=== PATIENT | male | born 1975 | race Caucasian/White ===

== ENCOUNTER → 2017-03-15 | Outpatient (CLI) | payer OTHER ==
--- NOTE | 2017-03-15 15:50 | CT ---
EXAMINATION TYPE: CT lumbar spine wo con DATE OF EXAM: 03/15/2017 COMPARISON: MRI lumbar spine September 07, 2011 HISTORY: Patient complains of chronic low back pain with radiation bilaterally to the extremities. CT DLP: 719.6 mGycm Automated exposure control for dose reduction was used. FINDINGS: 5 lumbar type vertebra are redemonstrated. Transitional-type S1 vertebra is redemonstrated. Lumbar sp ine shows satisfactory alignment without evidence of acute fracture or dislocation. Vertebral body he ights and disc space heights are fairly well maintained with exception mild disc space narrowing L5-S 1 level. No large posterior disc herniations are seen on sagittal images. No significant spurring is seen. Review of axial images shows T12-L1, L1-L2, L2-L3, L3-L4, and L4-L5 levels all to appear within marlen l limits levels. Axial images at L5-S1 level show mild facet degenerative changes bilaterally with small central disc protrusion but spinal canal is grossly preserved and bilateral neural foramina are patent. There is partial visualization of normal-appearing appendix in the right upper pelvis. IMPRESSION: MILD DEGENERATIVE CHANGES L5-S1 LEVEL REDEMONSTRATED DETAILED ABOVE, NO SIGNIFICANT PROGRESSION FR OM PRIOR MRI.
== END | disposition home or self-care (01) ==
LOC: RADCTMAIN 15:22
PROVIDERS: ATTEND Family Medicine
DX: M47.816 Spondylosis without myelopathy or radiculopathy, lumbar region (principal)
CPT/HCPCS: 72131

== ENCOUNTER 2017-04-23 09:27 | Observation (INO) | payer OTHER ==
--- NOTE | 2017-04-23 09:43 | ED ---
General Adult HPI - General Chief complaint: Syncope Stated complaint: Syncope/Chest Pain Time Seen by Provider: 04/23/17 09:33 Source: patient, EMS, RN notes reviewed, old records reviewed Mode of arrival: EMS Limitations: no limitations - History of Present Illness Initial comments: This is a 42-year-old out of the ER for evaluation of the. Patient just ER evaluation of shortness of breath with syncopal event. Patient states his With elevated heart rate for about a month or so now. He denies chest pain but stated he had a syncopal event while he was at home today. Based on the timing that he was able to see thinks she was passed out for about a half hour. Currently no chest areas have shortness of breath. This which occasional drug use and no drugs or alcohol today. No other complaints. No headache no chest pain is abdominal pain - Related Data Home Medications Medication Instructions Recorded Confirmed Gabapentin 800 mg PO TID 04/23/17 04/23/17 HYDROcodone/APAP 7.5-325MG [[place] 1 tab PO TID PRN 04/23/17 04/23/17 7.5-325] QUEtiapine FUMARATE [Seroquel Xr] 300 mg PO HS 04/23/17 04/23/17 QUEtiapine XR [SEROquel XR] 200 mg PO HS 04/23/17 04/23/17 Previous Rx's Medication Instructions Recorded Mirtazapine 30 mg PO HS #30 tablet 01/24/16 Perphenazine [Trilafon] 4 mg PO DAILY #30 tab 01/24/16 Perphenazine [Trilafon] 8 mg PO HS #60 tab 01/24/16 Trihexyphenidyl [Artane] 2 mg PO DAILY #30 tab 01/24/16 Trihexyphenidyl [Artane] 4 mg PO HS #60 tab 01/24/16 Allergies Allergy/AdvReac Type Severity Reaction Status Date / Time pregabalin [From Lyrica] Allergy Swelling Verified 04/23/17 09:41 Review of Systems ROS Statement: Those systems with pertinent positive or pertinent negative responses have been documented in the HPI. ROS Other: All systems not noted in ROS Statement are negative. Past Medical History Past Medical History: Fibromyalgia Additional Past Medical History / Comment(s): Chronic back pain History of Any Multi-Drug Resistant Organisms: None Reported Past Surgical History: Joint Replacement Additional Past Surgical History / Comment(s): ORIF left hip Past Psychological History: Depression, Schizoaffective Disorder Smoking Status: Current every day smoker Past Alcohol Use History: Rare Past Drug Use History: Cocaine - Past Family History Father Additional Family Medical History / Comment(s): Father is alive in his late 60s with no major medical problems. Mother Additional Family Medical History / Comment(s): Mother is alive in her early 60s with history of peripheral artery disease Brother(s) Additional Family Medical History / Comment(s): Patient has 1 brother with no major medical problems. Patient does not have any sisters. General Exam Limitations: no limitations General appearance: alert, in no apparent distress Head exam: Present: atraumatic, normocephalic, normal inspection Eye exam: Present: normal appearance, PERRL, EOMI. Absent: scleral icterus, conjunctival injection, periorbital swelling ENT exam: Present: normal exam, mucous membranes moist Neck exam: Present: normal inspection. Absent: tenderness, meningismus, lymphadenopathy Respiratory exam: Present: normal lung sounds bilaterally. Absent: respiratory distress, wheezes, rales, rhonchi, stridor Cardiovascular Exam: Present: normal rhythm, tachycardia, normal heart sounds. Absent: systolic murmur, diastolic murmur, rubs, gallop, clicks GI/Abdominal exam: Present: soft, normal bowel sounds. Absent: distended, tenderness, guarding, rebound, rigid Extremities exam: Present: normal inspection, full ROM, normal capillary refill. Absent: tenderness, pedal edema, joint swelling, calf tenderness Back exam: Present: normal inspection Neurological exam: Present: alert, oriented X3, CN II-XII intact Psychiatric exam: Present: normal affect, normal mood Skin exam: Present: warm, dry, intact, normal color. Absent: rash Course Vital Signs 04/23/17 04/23/17 09:32 10:18 Temperature 97.4 F L Pulse Rate 91 111 H Respiratory 18 18 Rate Blood Pressure 130/75 113/66 O2 Sat by Pulse 97 96 Oximetry - Reevaluation(s) Reevaluation #1: 04/23/17 10:46 Patient is without syncopal event but still feels out of it EKG Findings - EKG Comments: EKG Findings:: EKG shows normal sinus November 98, MD 1:30, QRS 94, QTC 434 Medical Decision Making - Medical Decision Making Foraging out here for evaluation of syncope, elevated heart rate and tachycardia. Weakness. No other neurological or abnormal deficits. Patient will be admitted for observation a syncopal event - Lab Data Result diagrams: 04/23/17 09:50 04/23/17 09:50 Lab Results 04/23/17 04/23/17 04/23/17 Range/Units 09:50 09:50 09:50 WBC 5.6 (3.8-10.6) k/uL RBC 4.70 (4.30-5.90) m/uL Hgb 14.4 (13.0-17.5) gm/dL Hct 43.7 (39.0-53.0) % MCV 92.8 (80.0-100.0) fL MCH 30.6 (25.0-35.0) pg MCHC 32.9 (31.0-37.0) g/dL RDW 14.8 (11.5-15.5) % Plt Count 151 (150-450) k/uL Neutrophils % 63 % Lymphocytes % 22 % Monocytes % 6 % Eosinophils % 7 % Basophils % 1 % Neutrophils # 3.5 (1.3-7.7) k/uL Lymphocytes # 1.2 (1.0-4.8) k/uL Monocytes # 0.3 (0-1.0) k/uL Eosinophils # 0.4 (0-0.7) k/uL Basophils # 0.0 (0-0.2) k/uL PT (9.0-12.0) sec INR (<1.2) APTT (22.0-30.0) sec D-Dimer (<0.60) mg/L FEU Sodium 142 (137-145) mmol/L Potassium 4.1 (3.5-5.1) mmol/L Chloride 112 H (98-107) mmol/L Carbon Dioxide 21 L (22-30) mmol/L Anion Gap 9 mmol/L BUN 6 L (9-20) mg/dL Creatinine 0.81 (0.66-1.25) mg/dL Est GFR (MDRD) Af Amer >60 (>60 ml/min/1.73 sqM) Est GFR (MDRD) Non-Af >60 (>60 ml/min/1.73 sqM) Glucose 91 (74-99) mg/dL Calcium 8.4 (8.4-10.2) mg/dL Magnesium 1.7 (1.6-2.3) mg/dL Total Bilirubin 0.3 (0.2-1.3) mg/dL AST 23 (17-59) U/L ALT 25 (21-72) U/L Alkaline Phosphatase 39 (38-126) U/L Total Creatine Kinase 152 (55-170) U/L Total Protein 6.1 L (6.3-8.2) g/dL Albumin 3.5 (3.5-5.0) g/dL Lipase 39 (23-300) U/L Salicylates mg/dL Urine Opiates Screen (NotDetected) Ur Oxycodone Screen (NotDetected) Urine Methadone Screen (NotDetected) Ur Propoxyphene Screen (NotDetected) Acetaminophen ug/mL Ur Barbiturates Screen (NotDetected) U Tricyclic Antidepress (NotDetected) Ur Phencyclidine Scrn (NotDetected) Ur Amphetamines Screen (NotDetected) U Methamphetamines Scrn (NotDetected) U Benzodiazepines Scrn (NotDetected) Urine Cocaine Screen (NotDetected) U Marijuana (THC) Screen (NotDetected) 04/23/17 04/23/17 04/23/17 Range/Units 09:50 09:50 10:00 WBC (3.8-10.6) k/uL RBC (4.30-5.90) m/uL Hgb (13.0-17.5) gm/dL Hct (39.0-53.0) % MCV (80.0-100.0) fL MCH (25.0-35.0) pg MCHC (31.0-37.0) g/dL RDW (11.5-15.5) % Plt Count (150-450) k/uL Neutrophils % % Lymphocytes % % Monocytes % % Eosinophils % % Basophils % % Neutrophils # (1.3-7.7) k/uL Lymphocytes # (1.0-4.8) k/uL Monocytes # (0-1.0) k/uL Eosinophils # (0-0.7) k/uL Basophils # (0-0.2) k/uL PT 10.7 (9.0-12.0) sec INR 1.1 (<1.2) APTT 22.4 (22.0-30.0) sec D-Dimer 0.33 (<0.60) mg/L FEU Sodium (137-145) mmol/L Potassium (3.5-5.1) mmol/L Chloride (98-107) mmol/L Carbon Dioxide (22-30) mmol/L Anion Gap mmol/L BUN (9-20) mg/dL Creatinine (0.66-1.25) mg/dL Est GFR (MDRD) Af Amer (>60 ml/min/1.73 sqM) Est GFR (MDRD) Non-Af (>60 ml/min/1.73 sqM) Glucose (74-99) mg/dL Calcium (8.4-10.2) mg/dL Magnesium (1.6-2.3) mg/dL Total Bilirubin (0.2-1.3) mg/dL AST (17-59) U/L ALT (21-72) U/L Alkaline Phosphatase (38-126) U/L Total Creatine Kinase (55-170) U/L Total Protein (6.3-8.2) g/dL Albumin (3.5-5.0) g/dL Lipase (23-300) U/L Salicylates <1.0 mg/dL Urine Opiates Screen Detected H (NotDetected) Ur Oxycodone Screen Not Detected (NotDetected) Urine Methadone Screen Not Detected (NotDetected) Ur Propoxyphene Screen Not Detected (NotDetected) Acetaminophen <10.0 ug/mL Ur Barbiturates Screen Not Detected (NotDetected) U Tricyclic Antidepress Detected H (NotDetected) Ur Phencyclidine Scrn Not Detected (NotDetected) Ur Amphetamines Screen Not Detected (NotDetected) U Methamphetamines Scrn Not Detected (NotDetected) U Benzodiazepines Scrn Not Detected (NotDetected) Urine Cocaine Screen Detected H (NotDetected) U Marijuana (THC) Screen Not Detected (NotDetected) - Radiology Data Radiology results: report reviewed (Chest x-ray negative for acute disease), image reviewed Disposition Clinical Impression: Vasovagal syncope, Tachycardia Disposition: ADMITTED IP TO THIS HOSP Condition: Undetermined Referrals: Raven Baron MD [STAFF PHYSICIAN] - 1-2 days
[2017-04-23 10:05] LABS: Basophils % (A) 1 %; CH 31.8; CHCM 34.4; Eosinophils # (A) 0.4 k/uL (0-0.7); Eosinophils % (A) 7 %; HCT 43.7 % (39.0-53.0); HDW 2.83; HGB 14.4 gm/dL (13.0-17.5); Luc % (Auto) 2; Lymphocytes # (A) 1.2 k/uL (1.0-4.8); Lymphocytes % (A) 22 %; MCH 30.6 pg (25.0-35.0); MCHC 32.9 g/dL (31.0-37.0); MCV 92.8 fL (80.0-100.0); Mean Platelet Volume 8.2; Monocytes # (A) 0.3 k/uL (0-1.0); Monocytes % (A) 6 %; Neutrophils # (A) 3.5 k/uL (1.3-7.7); Neutrophils % (A) 63 %; RDW 14.8 % (11.5-15.5); WBC 5.6 k/uL (3.8-10.6); WBC (Perox) 5.34
[2017-04-23 10:14] LABS: Acetaminophen <10.0 ug/mL; Salicylate <1.0 mg/dL
[2017-04-23 10:15] LABS: ALT 25 U/L (21-72); AST 23 U/L (17-59); Alkaline Phosphatase 39 U/L (38-126); Anion Gap 9 mmol/L; Blood Urea Nitrogen 6 mg/dL (9-20); Calcium 8.4 mg/dL (8.4-10.2); Carbon Dioxide 21 mmol/L (22-30); Chloride 112 mmol/L (98-107); Glucose 91 mg/dL (74-99); Magnesium 1.7 mg/dL (1.6-2.3); Non-African American GFR(MDRD) >60 (>60 ml/min/1.73 sqM); Sodium 142 mmol/L (137-145); Total Bilirubin 0.3 mg/dL (0.2-1.3); Total Protein 6.1 g/dL (6.3-8.2)
--- NOTE | 2017-04-23 10:17 | XR ---
EXAMINATION TYPE: XR chest 2V DATE OF EXAM: 04/23/2017 COMPARISON: NONE HISTORY: Chest pain and syncope TECHNIQUE: Frontal and lateral views of the chest are obtained. FINDINGS: There is no focal air space opacity, pleural effusion, or pneumothorax seen. The cardiac silhouette size is within normal limits, appearance of heart size may be accentuated by technique. Th ere are overlying cardiac leads. Patient is rotated. The osseous structures are intact. IMPRESSION: No acute cardiopulmonary process.
[2017-04-23 10:19] LABS: INR 1.1 (<1.2); Partial Thromboplastin Time 22.4 sec (22.0-30.0); Prothrombin Time 10.7 sec (9.0-12.0)
[2017-04-23 10:32] LABS: Potassium 4.1 mmol/L (3.5-5.1)
[2017-04-23 10:33] LABS: Creatine Kinase 152 U/L (55-170)
[2017-04-23] MEDS ORDERED: NITROGLYCERIN SL TABS 0.4 MG TAB SUBLINGUAL PRN (10:42)
[2017-04-23] MEDS ORDERED: ASPIRIN 81 MG PO STA (10:42)
[2017-04-23 10:44] LABS: Creatine Kinase MB 1.6 ng/mL (0.0-2.4); Troponin I <0.012 ng/mL (0.000-0.034)
[2017-04-23] MEDS: SODIUM CHLORIDE 0.9% 1,000 ML IV SCH ×2 (11:58→20:31)
--- NOTE | 2017-04-23 12:05 | P.HPIM ---
History of Present Illness H&P Date: 04/23/17 Chief Complaint: Syncope Patient is a 42-year-old male with a past medical history depression, schizoaffective disorder, fibromyalgia, and chronic back pain who presented to the emergency department with complaints of syncope. He states that he was in his kitchen standing up when he began having chest pain. He had just smoked a cigarette and had a cup of coffee. He describes the chest pain as retrosternal with radiation to his left jaw. It was associated with shortness of breath with wheeze. He describes this as a squeezing sensation. He also had associated nausea and lightheadedness. He had an increase in his anxiety and felt as if something was going to happen. He states that this lasted for approximately 30 minutes. The next thing he remembers is waking up on his kitchen floor. He believes was about 25 minutes that he was passed out. He states it would have been associated with a fall from standing. He lives alone. He admits to cocaine use approximately 3 days ago. He follows closely with psychiatry and is on multiple medications. He denies any recent changes in his medications. He has not missed any medications or taking any extra doses of medications. He has no other complaints currently and denies any recent illness. He is not currently working. He states that when he tries to donate plasma on a tell him his heart rate is too high more often than not. He states that he drinks 3 L of water per day. He was brought in by EMS. On presentation to the ER he had a resting tachycardia at 111. EKG was unremarkable. Laboratory analysis was essentially normal. EKG showed normal sinus rhythm. Review of Systems General: no fever/chills, no rigors, no weight loss/weight gain, no change in appetite Eyes: No double vision, no unusual blurry vision, no loss of vision ENT: No rhinorrhea, congestion, no trush Cardiovascular: Positive chest pain, positive palpitations, positive syncope, no edema, no paroxysmal nocturnal dyspnea, + dizziness Pulmonary: + Shortness of breath, + wheezing, no cough, hemoptysis Abdominal: No abdominal pain, no constipation, no diarrhea, no vomiting, no nausea, no distention Genitourinary: No dysuria, no urinary frequency, no hematuria, no unusual discharge/odor Neuro: No unusual paresthesias, no unusual paresis/paralysis, no headache Dermatologic: No unusual rashes, no unusual lesions, no unusual changes in nails Endocrinology: No intolerance to heat/cold, no excessive thirst,] no unusual fatigue Hematologic: No unusual bruising or bleeding, no unusual cervical lymphadenopathy Psychiatric: No changes in mood or behaviors, no changes in sleep pattern Past Medical History Past Medical History: Fibromyalgia Additional Past Medical History / Comment(s): Chronic back pain, lumbar DDD, L hip nerve pain, hx of ETOH abuse but after 15 yrs in detention, he drinks rarely. History of Any Multi-Drug Resistant Organisms: None Reported Past Surgical History: Orthopedic Surgery Additional Past Surgical History / Comment(s): ORIF left hip Past Psychological History: Depression, Schizoaffective Disorder Smoking Status: Current every day smoker Past Alcohol Use History: Rare Past Drug Use History: Cocaine - Past Family History Father Additional Family Medical History / Comment(s): Father is alive in his late 60s. He is an alcoholic. Mother Family Medical History: Fibromyalgia Additional Family Medical History / Comment(s): Mother is alive in her 60s with history of peripheral artery disease Brother(s) Additional Family Medical History / Comment(s): Patient has 1 brother with no major medical problems. Patient does not have any sisters. Medications and Allergies Home Medications Medication Instructions Recorded Confirmed Type Gabapentin 800 mg PO TID 04/23/17 04/23/17 History HYDROcodone/APAP 7.5-325MG [[place] 1 tab PO TID PRN 04/23/17 04/23/17 History 7.5-325] QUEtiapine FUMARATE [Seroquel Xr] 300 mg PO HS 04/23/17 04/23/17 History QUEtiapine XR [SEROquel XR] 200 mg PO HS 04/23/17 04/23/17 History Allergies Allergy/AdvReac Type Severity Reaction Status Date / Time pregabalin [From Lyrica] Allergy Swelling Verified 04/23/17 09:41 Physical Exam Osteopathic Statement: *. No significant issues noted on an osteopathic structural exam other than those noted in the History and Physical/Consult. Vitals: Vital Signs Temp Pulse Resp BP Pulse Ox 04/23/17 10:18 111 H 18 113/66 96 04/23/17 09:32 97.4 F L 91 18 130/75 97 Intake and Output 04/22/17 04/23/17 04/23/17 22:59 06:59 14:59 Other: Weight 83.915 kg Patient Weight 04/24/17 06:59 Weight 83.915 kg General: non toxic, no distress, appears at stated age, normal weight, disheveled Derm: no rashes, no lesions, no ulcers, no unusual ecchymoses Head: atraumatic, normocephalic, symmetric Eyes: EOMI, no lid lag, anicteric sclera, pupils equal round reactive to light ENT: no post nasal drip, no thrush , nearest patent, no pharyngeal erythema Neck: No thyromegaly, no cervical lymphadenopathy, trachea midline, supple Mouth: no lip lesion, mucus membranes moist Cardiovascular: S1S2 reg, no murmur, positive posterior tibial pulse bilateral, no edema , no JVD, no clubbing, no cyanosis, capillary refill less than 2 seconds, chest pain nonreproducible Lungs: CTA bilateral, no rhonchi, no rales , no accessory muscle use Abdominal: soft, nontender to palpation, no guarding, no appreciable organomegaly, normal bowel sounds Ext: no gross muscle atrophy, muscle strength 5 out of 5 in all 4 extremities grossly, no contractures, Neuro: CN II-XI grossly intact, light touch intact all 4 extremities, finger to nose within normal limits, Psych: Alert, oriented, anxious with pressured speech Results CBC & Chem 7: 04/23/17 09:50 04/23/17 09:50 Labs: Abnormal Lab Results - Last 24 Hours (Table) 04/23/17 04/23/17 Range/Units 09:50 10:00 Chloride 112 H (98-107) mmol/L Carbon Dioxide 21 L (22-30) mmol/L BUN 6 L (9-20) mg/dL Total Protein 6.1 L (6.3-8.2) g/dL Urine Opiates Screen Detected H (NotDetected) U Tricyclic Antidepress Detected H (NotDetected) Urine Cocaine Screen Detected H (NotDetected) Comments: EKG reviewed by me reveals normal sinus rhythm at a rate of 98, normal intervals , normal axis, and nonspecific ST-T wave changes Chest x-ray: report reviewed, image reviewed Thrombosis Risk Factor Assmnt - DVT/VTE Prophylaxis DVT/VTE Prophylaxis: Low risk, early ambulation encouraged - Choose All That Apply Any of the Below Risk Factors Present?: Yes Each Factor Represents 1 point: Age 41-60 years, Obesity (BMI >25) Other Risk Factors: No Other congenital or acquired thrombophilia - If yes, enter type in comment: No Thrombosis Risk Factor Assessment Total Risk Factor Score: 2 Thrombosis Risk Factor Assessment Level: Low Risk Assessment and Plan (1) Syncope Narrative/Plan: Monitor on telemetry, avoid caffeine and nicotine, check echocardiogram in a.m. , if abnormalities on echo or telemetry will consult cardiology. Suspect vasovagal syncope. Status: Acute (2) Chest pain Narrative/Plan: Rather atypical in nature with 30 minute duration of pain associated with anxiety, trend troponins 2 and repeat EKG in a.m., if any abnormalities or chest pain recurred then would consider inpatient versus outpatient cardiac stress test, as needed nitro, aspirin, check lipid profile, check A1c Status: Acute (3) Tobacco abuse Narrative/Plan: Cessation encouraged, will not provide nicotine replacement at this point in time secondary to tachycardia listed above. Status: Acute (4) Cocaine abuse Narrative/Plan: Cessation recommended, this likely could be the cause of his tachycardia. Status: Acute (5) Schizo affective schizophrenia Narrative/Plan: Continue home medications and follow up with psychiatry as an outpatient. Status: Acute (6) Tachycardia Narrative/Plan: Undetermined etiology, electrolytes within normal limits, check echocardiogram, check TSH, magnesium level is normal, may be related to cocaine use. Status: Acute Plan: DVT prophylaxis: Early ambulation Discused with: Emergency department physician Anticipated discharge: Likely home in a.m. pending echo and telemetry results Anticipated discharge place: Home A total of 45 minutes was spent on the care of this complex patient more than 50 % of the time was spent in counseling and care coordination. Time with Patient: Greater than 30
[2017-04-23 17:06] LABS: Creatine Kinase 108 U/L (55-170)
[2017-04-23 17:19] LABS: Creatine Kinase MB 1.3 ng/mL (0.0-2.4); Troponin I <0.012 ng/mL (0.000-0.034)
[2017-04-23] MEDS: GABAPENTIN 400 MG CAP PO SCH (20:33)
[2017-04-23] MEDS: HYDROcodone/APAP 7.5-325MG 1 EACH TAB PO PRN (20:38)
[2017-04-23] MEDS ORDERED: MIRTAZAPINE 15 MG TAB PO SCH (21:00)
[2017-04-23] MEDS ORDERED: PERPHENAZINE 4 MG TAB PO SCH (21:00)
[2017-04-23] MEDS ORDERED: TRIHEXYPHENIDYL 2 MG TAB PO SCH (21:00)
[2017-04-23 22:38] LABS: Creatine Kinase 96 U/L (55-170)
[2017-04-23 22:51] LABS: Creatine Kinase MB 1.5 ng/mL (0.0-2.4); Troponin I <0.012 ng/mL (0.000-0.034)
[2017-04-24 03:42] VITALS: RESP 18
[2017-04-24] MEDS: NICOTINE 14MG/24HR PATCH TRANSDERM SCH ×2 (04:37→06:39)
[2017-04-24] MEDS: SODIUM CHLORIDE 0.9% 1,000 ML IV SCH (06:41)
[2017-04-24 07:38] VITALS: TEMP 97.3
[2017-04-24] MEDS: GABAPENTIN 400 MG CAP PO SCH (08:25)
[2017-04-24] MEDS: HYDROcodone/APAP 7.5-325MG 1 EACH TAB PO PRN (08:28)
[2017-04-24] MEDS ORDERED: ASPIRIN 325 MG TAB PO SCH (09:00)
[2017-04-24] MEDS ORDERED: PERPHENAZINE 4 MG TAB PO SCH (09:00)
[2017-04-24] MEDS ORDERED: TRIHEXYPHENIDYL 2 MG TAB PO SCH (09:00)
[2017-04-24] MEDS ORDERED: ENOXAPARIN 40 MG/0.4 ML SYRINGE SQ SCH (09:00)
[2017-04-24 11:38] VITALS: BP 123/78; PULSE 80
--- NOTE | 2017-04-24 11:45 | ECHOF ---
Referral Reason:syncope MEASUREMENTS -------- HEIGHT: 177.8 cm WEIGHT: 83.9 kg BP: 118/73 RVIDd: 2.9 cm (< 3.3) IVSd: 1.1 cm (0.6 - 1.1) LVIDd: 4.7 cm (3.9 - 5.3) LVPWd: 1.0 cm (0.6 - 1.1) IVSs: 1.4 cm LVIDs: 3.0 cm LVPWs: 1.3 cm LA Diam: 3.5 cm (2.7 - 3.8) LAESV Index (A-L): 23.40 ml/m Ao Diam: 2.9 cm (2.0 - 3.7) AV Cusp: 2.1 cm (1.5 - 2.6) MV EXCURSION: 23.970 mm (> 18.000) MV EF SLOPE: 212 mm/s (70 - 150) EPSS: 0.6 cm MV E Mak: 0.79 m/s MV DecT: 140 ms MV A Mak: 0.53 m/s MV E/A Ratio: 1.48 RAP: 5.00 mmHg RVSP: 23.43 mmHg FINDINGS -------- Sinus rhythm. This was a technically good study. The left ventricular size is normal. There is borderline concentric left ventricular hypertrophy. Overall left ventricular systolic function is normal with, an EF between 55 - 60 %. The right ventricle is normal in size. Normal LA size by volume 22+/-6 ml/m2. The right atrium is normal in size. The aortic valve is trileaflet and appears structurally normal. There is trace to mild mitral regurgitation. Trace tricuspid regurgitation present. The pulmonic valve was not well visualized. The aortic root size is normal. l inferior vena cava with normal inspiratory collapse consistent with estimated right atrial pressure of 5 mmHg. The inferior vena cava is mildly dilated. There is no pericardial effusion. CONCLUSIONS -------- 1. Sinus rhythm. 2. There is trace to mild mitral regurgitation. 3. Trace tricuspid regurgitation present. 4. The pulmonic valve was not well visualized. 5. The aortic root size is normal. 6. l inferior vena cava with normal inspiratory collapse consistent with estimated right atrial pressure of 5 mmHg. 7. The inferior vena cava is mildly dilated. 8. There is no pericardial effusion. 9. This was a technically good study. 10. The left ventricular size is normal. 11. There is borderline concentric left ventricular hypertrophy. 12. Overall left ventricular systolic function is normal with, an EF between 55 - 60 %. 13. The right ventricle is normal in size. 14. Normal LA size by volume 22+/-6 ml/m2. 15. The right atrium is normal in size. 16. The aortic valve is trileaflet and appears structurally normal. BEHAVIORIST: Emilie Mayes RDCS
--- NOTE | 2017-04-24 13:40 | P.DS ---
Providers Date of admission: 04/23/17 10:42 Expected date of discharge: 04/24/17 Attending physician: Aylin Major DO Consults: None Primary care physician: Stated None - Discharge Diagnosis(es) (1) Syncope Current Visit: Yes Status: Acute (2) Chest pain Current Visit: Yes Status: Acute (3) Tobacco abuse Current Visit: Yes Status: Acute (4) Cocaine abuse Current Visit: Yes Status: Acute (5) Schizo affective schizophrenia Current Visit: Yes Status: Acute (6) Tachycardia Current Visit: Yes Status: Acute Hospital Course: Patient is a 42-year-old male with past medical history of depression , schizoaffective disorder, fibromyalgia, and chronic back pain presented to the emergency department with a syncopal event. He had recently drunk coffee and smoked a cigarette. He states that his symptoms began with some chest discomfort associated with shortness of breath and wheezing. He also had nausea and lightheadedness and felt increasingly anxious. He believes he passed out for 30 minutes. He did not lose control of his bowel or bladder. He did admit to cocaine use. In the ER his EKG showed normal sinus rhythm, his troponins were negative, he was slightly tachycardic at 110 in the vital sign. He was started on IV fluids and request was made for admission. He was admitted to the observation unit. He was monitored overnight on telemetry which showed normal sinus rhythm 70s. He underwent an echocardiogram which showed possible borderline LVH. He did not have any recurrence of chest pain. It was felt that his chest pain was likely dictated by multiple stimulant use including cocaine, nicotine, and tobacco products. With a troponin being negative 2 and resolution of his chest pain currently discharged home to follow up with his primary care physician. Patient Condition at Discharge: Undetermined Plan - Discharge Summary New Discharge Prescriptions: Continue Trihexyphenidyl [Artane] 2 mg PO DAILY #30 tab Trihexyphenidyl [Artane] 4 mg PO HS #60 tab Mirtazapine 30 mg PO HS #30 tablet Perphenazine [Trilafon] 8 mg PO HS #60 tab Perphenazine [Trilafon] 4 mg PO DAILY #30 tab QUEtiapine XR [SEROquel XR] 200 mg PO HS QUEtiapine FUMARATE [Seroquel Xr] 300 mg PO HS HYDROcodone/APAP 7.5-325MG [[place] 7.5-325] 1 tab PO TID PRN PRN Reason: Pain Gabapentin 800 mg PO TID Discharge Medication List Mirtazapine 30 mg PO HS #30 tablet 01/24/16 [Rx] Perphenazine [Trilafon] 4 mg PO DAILY #30 tab 01/24/16 [Rx] Perphenazine [Trilafon] 8 mg PO HS #60 tab 01/24/16 [Rx] Trihexyphenidyl [Artane] 2 mg PO DAILY #30 tab 01/24/16 [Rx] Trihexyphenidyl [Artane] 4 mg PO HS #60 tab 01/24/16 [Rx] Gabapentin 800 mg PO TID 04/23/17 [History] HYDROcodone/APAP 7.5-325MG [[place] 7.5-325] 1 tab PO TID PRN 04/23/17 [History] QUEtiapine FUMARATE [Seroquel Xr] 300 mg PO HS 04/23/17 [History] QUEtiapine XR [SEROquel XR] 200 mg PO HS 04/23/17 [History] Follow up Appointment(s)/Referral(s): [facility]ERR[facility] - 3 Days Patient Instructions/Handouts: How to Stop Smoking (DC) Activity/Diet/Wound Care/Special Instructions: Regular diet Limit caffeine No illicit drug use Stop smoking if able Discharge Disposition: HOME SELF-CARE Pending Studies Pending Results: None
== END 2017-04-24 13:21 | disposition home or self-care (01) ==
LOC: EC 09:27 → 3OBS 10:42
PROVIDERS: ADMIT Internal Medicine; ATTEND Internal Medicine
DX: R55 Syncope and collapse (principal); R07.89 Other chest pain; R06.2 Wheezing; R06.02 Shortness of breath; R42 Dizziness and giddiness; R11.0 Nausea; F41.9 Anxiety disorder, unspecified; F17.210 Nicotine dependence, cigarettes, uncomplicated; F14.10 Cocaine abuse, uncomplicated; F25.9 Schizoaffective disorder, unspecified; R00.0 Tachycardia, unspecified; E66.9 Obesity, unspecified; Z68.28 Body mass index [BMI] 28.0-28.9, adult; G89.29 Other chronic pain; M54.9 Dorsalgia, unspecified; M79.7 Fibromyalgia; M51.36 Other intervertebral disc degeneration, lumbar region; F32.9 Major depressive disorder, single episode, unspecified; Z79.899 Other long term (current) drug therapy; Z88.8 Allergy status to other drugs, medicaments and biological substances; Z82.49 Family history of ischemic heart disease and other diseases of the circulatory system
CPT/HCPCS: 99285; 96360; 96372; 36415; 93005; 93306; 85379; 80061; 80053; 84443; 83036; 82550; 82553; 83690; 83735; 84484; 85025; 85610; 85730; 80306; 83520 ×2; 71020; G0378 ×2; S4990; Q0175 ×2; J1650

== ENCOUNTER 2020-02-03 00:19 | Inpatient (IN) | payer MEDICAID, OTHER ==
[2020-02-03] MEDS ORDERED: SODIUM CHLORIDE 0.9% 1,000 ML IV ONE (00:59)
[2020-02-03 01:22] LABS: Basophils % (A) 0 %; Eosinophils # (A) 0.3 k/uL (0-0.7); Eosinophils % (A) 4 %; HCT 45.1 % (39.0-53.0); HGB 14.7 gm/dL (13.0-17.5); Lymphocytes # (A) 0.8 k/uL (1.0-4.8); Lymphocytes % (A) 11 %; MCH 29.6 pg (25.0-35.0); MCHC 32.5 g/dL (31.0-37.0); Mean Platelet Volume 8.1; Monocytes # (A) 0.5 k/uL (0-1.0); Monocytes % (A) 6 %; Neutrophils # (A) 5.8 k/uL (1.3-7.7); Neutrophils % (A) 77 %; Platelet Count 162 k/uL (150-450); RBC 4.95 m/uL (4.30-5.90); RDW 12.8 % (11.5-15.5); WBC 7.6 k/uL (3.8-10.6)
[2020-02-03 01:30] LABS: ALT 18 U/L (4-49); AST 20 U/L (17-59); African American GFR (CKD) >90 (>60 ml/min/1.73 sqM); Albumin 4.3 g/dL (3.5-5.0); Alkaline Phosphatase 48 U/L (38-126); Anion Gap 7 mmol/L; Blood Urea Nitrogen 8 mg/dL (9-20); Calcium 9.2 mg/dL (8.4-10.2); Carbon Dioxide 24 mmol/L (22-30); Chloride 105 mmol/L (98-107); Glucose 110 mg/dL (74-99); Non-African American GFR(CKD) >90 (>60 ml/min/1.73 sqM); Potassium 3.9 mmol/L (3.5-5.1); Sodium 136 mmol/L (137-145); Total Bilirubin 0.3 mg/dL (0.2-1.3); Total Protein 7.3 g/dL (6.3-8.2)
[2020-02-03] MEDS ORDERED: LORazepam 2 MG/ML INJ IV STA ×2 (01:36→01:39)
[2020-02-03] MEDS ORDERED: ZIPRASIDONE 20 MG VIAL IM STA (01:39)
[2020-02-03 01:56] LABS: Appearance,Urine Clear (Clear); Bilirubin,Urine Negative (Negative); Blood,Urine Negative (Negative); Color,Urine Light Yellow; Glucose,Urine (UA) Negative (Negative); Ketones,Urine Negative (Negative); Leukocyte Esterase,Urine Negative (Negative); Nitrite,Urine Negative (Negative); Protein,Urine Negative (Negative); Specific Gravity,Urine 1.005 (1.001-1.035)
[2020-02-03 02:23] LABS: Phencyclidine Screen,Urine Not Detected (NotDetected)
[2020-02-03 02:24] LABS: Amphetamine Screen,Urine Not Detected (NotDetected); Barbiturate Screen,Urine Not Detected (NotDetected); Benzodiazepines Screen,Urine Not Detected (NotDetected); Cocaine Screen,Urine Detected (NotDetected); Methadone Screen, Urine Not Detected (NotDetected); Opiate Screen,Urine Not Detected (NotDetected); Oxycodone Screen, Urine Not Detected (NotDetected); Tricyclic Antidepressant,Urine Detected (NotDetected); Urn Cannabinoid Scrn Detected (NotDetected)
--- NOTE | 2020-02-03 02:30 | ED ---
Psych HPI - General Chief Complaint: Psychiatric Symptoms Stated Complaint: mental health Time Seen by Provider: 02/03/20 00:35 Source: patient, EMS Mode of arrival: EMS - History of Present Illness Initial Comments: 44-year-old male patient is brought to the emergency department today for evaluation of bizarre behavior. Patient arrived at the [employer] [facility] and shortly thereafter started behaving oddly. Patient was reportedly walking around with a pillowcase and has had talking about being in water. He was confused as to how old he was in his the president was. Review of patient records revealed a he has a history of schizoaffective disorder. Patient states he is taking medication but he does not list what he is taking her why he is taking them. Patient currently denies any physical symptoms or concerns. When speaking to him he does seem confused and out of touch with reality. He denies any suicidal or homicidal ideation. Denies any current medical concerns. - Related Data Home Medications Medication Instructions Recorded Confirmed QUEtiapine FUMARATE [Seroquel Xr] 300 mg PO HS 04/23/17 02/03/20 QUEtiapine XR [SEROquel XR] 200 mg PO HS 04/23/17 02/03/20 Buprenorphine HCl/Naloxone HCl 1 film SUBLINGUAL DAILY 02/03/20 02/03/20 [Suboxone 12 mg-3 mg Sl Film] Buprenorphine HCl/Naloxone HCl 1 film SUBLINGUAL DAILY 02/03/20 02/03/20 [Suboxone 8 mg-2 mg Sl Film] Perphenazine [Trilafon] 8 mg PO BID 02/03/20 02/03/20 Propranolol [Inderal] 40 mg PO DAILY 02/03/20 02/03/20 Trihexyphenidyl HCl 5 mg PO BID 02/03/20 02/03/20 Previous Rx's Medication Instructions Recorded Mirtazapine 30 mg PO HS #30 tablet 01/24/16 Allergies Allergy/AdvReac Type Severity Reaction Status Date / Time pregabalin [From Lyrica] Allergy Swelling Verified 02/03/20 14:49 Review of Systems ROS Statement: Those systems with pertinent positive or pertinent negative responses have been documented in the HPI. ROS Other: All systems not noted in ROS Statement are negative. Past Medical History Past Medical History: Fibromyalgia Additional Past Medical History / Comment(s): Chronic back pain, lumbar DDD, L hip nerve pain, hx of ETOH abuse but after 15 yrs in longterm, he drinks rarely. History of Any Multi-Drug Resistant Organisms: None Reported Past Surgical History: Orthopedic Surgery Additional Past Surgical History / Comment(s): ORIF left hip Past Psychological History: Depression, Schizoaffective Disorder Smoking Status: Current every day smoker Past Alcohol Use History: Rare Past Drug Use History: Cocaine - Past Family History Father Additional Family Medical History / Comment(s): Father is alive in his late 60s. He is an alcoholic. Mother Family Medical History: Fibromyalgia Additional Family Medical History / Comment(s): Mother is alive in her 60s with history of peripheral artery disease Brother(s) Additional Family Medical History / Comment(s): Patient has 1 brother with no major medical problems. Patient does not have any sisters. General Exam Limitations: no limitations General appearance: alert, in no apparent distress, other (This is a well- developed, well-nourished adult male patient in no acute distress. Vital signs upon presentation are temperature 98.5F, pulse 118, respirations 18, blood pr essure 154/91, pulse ox 98% on room air.) Eye exam: Present: normal appearance, PERRL, EOMI. Absent: scleral icterus, conjunctival injection, periorbital swelling ENT exam: Present: normal exam, normal oropharynx, mucous membranes moist Respiratory exam: Present: normal lung sounds bilaterally. Absent: respiratory distress, wheezes, rales, rhonchi, stridor Cardiovascular Exam: Present: regular rate, normal rhythm, normal heart sounds. Absent: systolic murmur, diastolic murmur, rubs, gallop, clicks GI/Abdominal exam: Present: soft, normal bowel sounds. Absent: distended, tenderness, guarding, rebound, rigid Neurological exam: Present: alert, CN II-XII intact. Absent: oriented X3 (Oriented x1) Expanded Cranial nerves: EOM's Intact: Normal Motor strength exam: RUE: 5, LUE: 5, RLE: 5, LLE: 5 Eye Response: (4) open spontaneously Motor Response: (6) obeys commands Verbal Response: (4) confused conversation [place] Total: 14 Psychiatric exam: Present: anxious, manic, other (flight of ideas). Absent: homicidal ideation, suicidal ideation Skin exam: Present: warm, dry, intact, normal color. Absent: rash Course Vital Signs 02/03/20 02/03/20 02/03/20 00:30 04:00 05:19 Temperature 98.5 F Pulse Rate 118 H 74 Respiratory 18 16 12 Rate Blood Pressure 154/91 126/71 O2 Sat by Pulse 98 96 Oximetry Medical Decision Making - Medical Decision Making 44-year-old male patient presents to the emergency department today for bizarre behavior. Physical examination is unremarkable. Patient exhibits flight of id eas and manic behavior during my evaluation. Physical exam is unremarkable. We did perform lab testing which is unremarkable. He was not drinking alcohol this evening. He will be clear for emergency psychiatric services to evaluate. Care will be handed over to my attending Dr. Guerra at 0300. - Lab Data Result diagrams: 02/03/20 01:14 02/03/20 01:14 Lab Results 02/03/20 02/03/20 02/03/20 Range/Units 01:14 01:14 01:14 WBC 7.6 (3.8-10.6) k/uL RBC 4.95 (4.30-5.90) m/uL Hgb 14.7 (13.0-17.5) gm/dL Hct 45.1 (39.0-53.0) % MCV 91.0 (80.0-100.0) fL MCH 29.6 (25.0-35.0) pg MCHC 32.5 (31.0-37.0) g/dL RDW 12.8 (11.5-15.5) % Plt Count 162 (150-450) k/uL Neutrophils % 77 % Lymphocytes % 11 % Monocytes % 6 % Eosinophils % 4 % Basophils % 0 % Neutrophils # 5.8 (1.3-7.7) k/uL Lymphocytes # 0.8 L (1.0-4.8) k/uL Monocytes # 0.5 (0-1.0) k/uL Eosinophils # 0.3 (0-0.7) k/uL Basophils # 0.0 (0-0.2) k/uL Sodium 136 L (137-145) mmol/L Potassium 3.9 (3.5-5.1) mmol/L Chloride 105 (98-107) mmol/L Carbon Dioxide 24 (22-30) mmol/L Anion Gap 7 mmol/L BUN 8 L (9-20) mg/dL Creatinine 0.81 (0.66-1.25) mg/dL Est GFR (CKD-EPI)AfAm >90 (>60 ml/min/1.73 sqM) Est GFR (CKD-EPI)NonAf >90 (>60 ml/min/1.73 sqM) Glucose 110 H (74-99) mg/dL Calcium 9.2 (8.4-10.2) mg/dL Total Bilirubin 0.3 (0.2-1.3) mg/dL AST 20 (17-59) U/L ALT 18 (4-49) U/L Alkaline Phosphatase 48 (38-126) U/L Total Protein 7.3 (6.3-8.2) g/dL Albumin 4.3 (3.5-5.0) g/dL Triglycerides 56 (<150) mg/dL Cholesterol 133 (<200) mg/dL LDL Cholesterol, Calc 87 (0-99) mg/dL HDL Cholesterol 35 L (40-60) mg/dL TSH 3.830 (0.465-4.680) mIU/L Urine Color Urine Appearance (Clear) Urine pH (5.0-8.0) Ur Specific Kress (1.001-1.035) Urine Protein (Negative) Urine Glucose (UA) (Negative) Urine Ketones (Negative) Urine Blood (Negative) Urine Nitrite (Negative) Urine Bilirubin (Negative) Urine Urobilinogen (<2.0) mg/dL Ur Leukocyte Esterase (Negative) Urine Opiates Screen (NotDetected) Ur Oxycodone Screen (NotDetected) Urine Methadone Screen (NotDetected) Ur Propoxyphene Screen (NotDetected) Ur Barbiturates Screen (NotDetected) U Tricyclic Antidepress (NotDetected) Ur Phencyclidine Scrn (NotDetected) Ur Amphetamines Screen (NotDetected) U Methamphetamines Scrn (NotDetected) U Benzodiazepines Scrn (NotDetected) Urine Cocaine Screen (NotDetected) U Marijuana (THC) Screen (NotDetected) 02/03/20 Range/Units 01:45 WBC (3.8-10.6) k/uL RBC (4.30-5.90) m/uL Hgb (13.0-17.5) gm/dL Hct (39.0-53.0) % MCV (80.0-100.0) fL MCH (25.0-35.0) pg MCHC (31.0-37.0) g/dL RDW (11.5-15.5) % Plt Count (150-450) k/uL Neutrophils % % Lymphocytes % % Monocytes % % Eosinophils % % Basophils % % Neutrophils # (1.3-7.7) k/uL Lymphocytes # (1.0-4.8) k/uL Monocytes # (0-1.0) k/uL Eosinophils # (0-0.7) k/uL Basophils # (0-0.2) k/uL Sodium (137-145) mmol/L Potassium (3.5-5.1) mmol/L Chloride (98-107) mmol/L Carbon Dioxide (22-30) mmol/L Anion Gap mmol/L BUN (9-20) mg/dL Creatinine (0.66-1.25) mg/dL Est GFR (CKD-EPI)AfAm (>60 ml/min/1.73 sqM) Est GFR (CKD-EPI)NonAf (>60 ml/min/1.73 sqM) Glucose (74-99) mg/dL Calcium (8.4-10.2) mg/dL Total Bilirubin (0.2-1.3) mg/dL AST (17-59) U/L ALT (4-49) U/L Alkaline Phosphatase (38-126) U/L Total Protein (6.3-8.2) g/dL Albumin (3.5-5.0) g/dL Triglycerides (<150) mg/dL Cholesterol (<200) mg/dL LDL Cholesterol, Calc (0-99) mg/dL HDL Cholesterol (40-60) mg/dL TSH (0.465-4.680) mIU/L Urine Color Light Yellow Urine Appearance Clear (Clear) Urine pH 7.0 (5.0-8.0) Ur Specific Kress 1.005 (1.001-1.035) Urine Protein Negative (Negative) Urine Glucose (UA) Negative (Negative) Urine Ketones Negative (Negative) Urine Blood Negative (Negative) Urine Nitrite Negative (Negative) Urine Bilirubin Negative (Negative) Urine Urobilinogen 2.0 (<2.0) mg/dL Ur Leukocyte Esterase Negative (Negative) Urine Opiates Screen Not Detected (NotDetected) Ur Oxycodone Screen Not Detected (NotDetected) Urine Methadone Screen Not Detected (NotDetected) Ur Propoxyphene Screen Not Detected (NotDetected) Ur Barbiturates Screen Not Detected (NotDetected) U Tricyclic Antidepress Detected H (NotDetected) Ur Phencyclidine Scrn Not Detected (NotDetected) Ur Amphetamines Screen Not Detected (NotDetected) U Methamphetamines Scrn Not Detected (NotDetected) U Benzodiazepines Scrn Not Detected (NotDetected) Urine Cocaine Screen Detected H (NotDetected) U Marijuana (THC) Screen Detected H (NotDetected) Disposition Clinical Impression: Psychosis Disposition: TRANSFER TO PSYCH HOSP/UNIT Condition: Serious - Out of Hospital Transfer - Req. Specs Out of Hospital Transfer - Requested Specifics: Psychiatric Non-ICU ([facility])
[2020-02-03] MEDS ORDERED: MAGNESIUM HYDROXIDE 2,400 MG/10 ML CUP PO PRN (13:04)
[2020-02-03] MEDS ORDERED: MAG HYDROX/AL HYDROX/SIMETH 30 ML CUP PO PRN (13:04)
[2020-02-03] MEDS ORDERED: ACETAMINOPHEN TAB 325 MG TAB PO PRN (13:04)
[2020-02-03] MEDS ORDERED: LORazepam 1 MG TAB PO STA (13:16)
[2020-02-03] MEDS: NICOTINE 14MG/24HR PATCH TRANSDERM SCH (14:06)
[2020-02-03] MEDS: ZIPRASIDONE 20 MG VIAL IM PRN (16:08)
[2020-02-03] MEDS: LORazepam 1 MG TAB PO PRN (16:08)
--- NOTE | 2020-02-03 17:46 | P.HPMEDMHU ---
History of Present Illness H&P Date: 02/03/20 Chief Complaint: Bizarre behavior Patient is a 44-year-old male with a history of chronic back pain, fibromyalgia, degenerative disc disease, cocaine abuse, alcohol abuse who was petitioned by police and subsequently admitted to the mental health unit for bizarre behaviors. Patient has been confused with psychosis since admission. All information is obtained from thorough record review including speaking with the nurse, and review of his admission in the H&P performed on him in April 2017. Patient seen and examined with EPS nurse. He is acutely psychotic and cannot stay focused on my questions. He goes off talking about the , guns, and missing his leg. He currently is denying chest pain, shortness breath, nausea, vomiting, or diarrhea. He is unable to fully participate my exam as he has a flight of ideas. Review of Systems Unable to obtain full review of systems secondary to psychosis Past Medical History Past Medical History: Fibromyalgia Additional Past Medical History / Comment(s): Chronic back pain, lumbar DDD, L hip nerve pain, hx of ETOH History of Any Multi-Drug Resistant Organisms: None Reported Past Surgical History: Orthopedic Surgery Additional Past Surgical History / Comment(s): ORIF left hip Past Psychological History: Depression, Schizoaffective Disorder Additional Psychological History / Comment(s): . He does not drive, he uses the bus. He is independent. Smoking Status: Current every day smoker Past Alcohol Use History: Rare Past Drug Use History: Cocaine, Marijuana Additional Drug Use History / Comment(s): See above. - Past Family History Father Family Medical History: Hyperlipidemia Additional Family Medical History / Comment(s): alcoholic. Mother Family Medical History: Fibromyalgia Additional Family Medical History / Comment(s): peripheral artery disease Brother(s) Additional Family Medical History / Comment(s): Patient has 1 brother with no major medical problems. Patient does not have any sisters. Medications and Allergies Home Medications Medication Instructions Recorded Confirmed Type Mirtazapine 30 mg PO HS #30 tablet 01/24/16 02/03/20 Rx QUEtiapine FUMARATE [Seroquel Xr] 300 mg PO HS 04/23/17 02/03/20 History QUEtiapine XR [SEROquel XR] 200 mg PO HS 04/23/17 02/03/20 History Buprenorphine HCl/Naloxone HCl 1 film SUBLINGUAL DAILY 02/03/20 02/03/20 History [Suboxone 12 mg-3 mg Sl Film] Buprenorphine HCl/Naloxone HCl 1 film SUBLINGUAL DAILY 02/03/20 02/03/20 History [Suboxone 8 mg-2 mg Sl Film] Perphenazine [Trilafon] 8 mg PO BID 02/03/20 02/03/20 History Propranolol [Inderal] 40 mg PO DAILY 02/03/20 02/03/20 History Trihexyphenidyl HCl 5 mg PO BID 02/03/20 02/03/20 History Allergies Allergy/AdvReac Type Severity Reaction Status Date / Time pregabalin [From Lyrica] Allergy Swelling Verified 02/03/20 14:49 Physical Exam Osteopathic Statement: *. No significant issues noted on an osteopathic structural exam other than those noted in the History and Physical/Consult. Vitals: Vital Signs Temp Pulse Pulse Resp BP BP Pulse Ox 02/03/20 14:41 97.5 F L 124 H 16 124/87 02/03/20 05:19 74 12 126/71 96 02/03/20 04:00 16 02/03/20 00:30 98.5 F 118 H 18 154/91 98 Intake and Output 02/03/20 02/03/20 02/03/20 06:59 14:59 22:59 Other: Weight 83.915 kg 83.915 kg General: non toxic, no distress, appears at stated age, normal weight, disheveled Derm: no unusual rashes/lesions no unusual ecchymoses, warm, dry Head: atraumatic, normocephalic, symmetric Eyes: EOMI, no lid lag, anicteric sclera, ENT: Nose and ears atraumatic, no thrush, Neck: No thyromegaly, no cervical lymphadenopathy, trachea midline, supple Mouth: no lip lesion, mucus membranes dry Cardiovascular: S1S2 reg, no murmur, positive posterior tibial pulse bilateral, no edema, capillary refill less than 2 seconds Lungs: CTA bilateral, no rhonchi, no rales , no accessory muscle use Abdominal: soft, nontender to palpation, no guarding, no appreciable orga nomegaly, normal bowel sounds Ext: no gross muscle atrophy, muscle strength 5 out of 5 in all 4 extremities grossly, no contractures, Neuro: CN II-XI grossly intact, light touch intact all 4 extremities, unable to follow commands for [id number] Psych: Awake, alert to self, talking about things that are not present and cannot follow conversation Cranial Nerve Examination - Cranial Nerves Cranial Nerve II- Optic: Intact Cranial Nerve III- Oculomotor: Intact Cranial Nerve IV- Trochlear: Intact Cranial Nerve V- Trigeminal: Intact Cranial Nerve - Abducens: Intact Cranial Nerve VII- Facial: Intact Cranial Nerve VIII- Auditory: Intact Cranial Nerve IX- Glossopharyngeal: Intact Cranial Nerve X- Vagus: Intact Cranial Nerve XI- Accessory: Intact Cranial Nerve XII- Hypoglossal: Intact Results CBC & Chem 7: 02/03/20 01:14 02/03/20 01:14 Labs: Abnormal Lab Results - Last 24 Hours (Table) 02/03/20 02/03/20 02/03/20 Range/Units 01:14 01:14 01:45 Lymphocytes # 0.8 L (1.0-4.8) k/uL Sodium 136 L (137-145) mmol/L BUN 8 L (9-20) mg/dL Glucose 110 H (74-99) mg/dL U Tricyclic Antidepress Detected H (NotDetected) Urine Cocaine Screen Detected H (NotDetected) U Marijuana (THC) Screen Detected H (NotDetected) Thrombosis Risk Factor Assmnt - Choose All That Apply Each Factor Represents 1 point: Age 41-60 years Other Risk Factors: No Other congenital or acquired thrombophilia - If yes, enter type in comment: No Thrombosis Risk Factor Assessment Total Risk Factor Score: 1 Thrombosis Risk Factor Assessment Level: Low Risk Assessment and Plan Assessment: Chronic pain - Patient is prescribed Suboxone. RX sent 01/12 and 01/26 for both 12 and 8 mg films. Patient was not getting these filled per [facility] between 09/22/19 (that dose was 8.6) and 01/13/20. Would hold this medication due to altered mentation. - tylenol as needed for pain HTN - Propranolol Cocaine abuse - cessation Schizoaffective disorder with psychosis - hold suboxone - your psych management Thank you for allowing us to participate in the care of this pleasant patient. Do not hesitate to contact us with questions. Someone can be reached from the [facility] hospitalist group all hours of the day at [phone] or via perfect serve.
[2020-02-03] MEDS: MIRTAZAPINE 15 MG TAB PO SCH (20:26)
[2020-02-03] MEDS: QUEtiapine 100 MG TAB PO SCH (20:26)
[2020-02-03] MEDS: TRIHEXYPHENIDYL 2 MG TAB PO SCH (20:28)
[2020-02-03] MEDS: PERPHENAZINE 4 MG TAB PO SCH (20:45)
[2020-02-03] MEDS ORDERED: QUEtiapine 50 MG TAB PO SCH (21:00)
[2020-02-04 02:22] LABS: Cholesterol 133 mg/dL (<200); HDL Cholesterol 35 mg/dL (40-60); LDL Cholesterol,Calculated 87 mg/dL (0-99); Triglycerides 56 mg/dL (<150)
[2020-02-04] MEDS: NICOTINE 14MG/24HR PATCH TRANSDERM SCH (08:02)
[2020-02-04] MEDS: QUEtiapine 100 MG TAB PO SCH ×2 (08:03→20:15)
[2020-02-04] MEDS: PROPRANOLOL 40 MG TAB PO SCH (08:03)
[2020-02-04] MEDS: TRIHEXYPHENIDYL 2 MG TAB PO SCH ×2 (08:03→20:17)
[2020-02-04] MEDS: PERPHENAZINE 4 MG TAB PO SCH ×2 (08:03→20:18)
--- NOTE | 2020-02-04 11:59 | P.HP ---
Psychiatric H&P - . H&P Date: 02/04/20 History & Physical: Allergies Allergy/AdvReac Type Severity Reaction Status Date / Time pregabalin [From Lyrica] Allergy Swelling Verified 02/03/20 14:49 Vital Signs Temp 98.7 F 02/03/20 21:31 Pulse 104 H 02/04/20 08:00 Resp 16 02/03/20 14:41 BP 137/71 02/04/20 08:00 Pulse Ox 96 02/03/20 05:19 Intake & Output 02/03/20 02/04/20 02/04/20 18:59 06:59 18:59 Weight 83.915 kg Laboratory Last Values WBC 7.6 k/uL (3.8-10.6) 02/03/20 01:14 RBC 4.95 m/uL (4.30-5.90) 02/03/20 01:14 Hgb 14.7 gm/dL (13.0-17.5) 02/03/20 01:14 Hct 45.1 % (39.0-53.0) 02/03/20 01:14 MCV 91.0 fL (80.0-100.0) 02/03/20 01:14 MCH 29.6 pg (25.0-35.0) 02/03/20 01:14 MCHC 32.5 g/dL (31.0-37.0) 02/03/20 01:14 RDW 12.8 % (11.5-15.5) 02/03/20 01:14 Plt Count 162 k/uL (150-450) 02/03/20 01:14 Neutrophils % 77 % 02/03/20 01:14 Lymphocytes % 11 % 02/03/20 01:14 Monocytes % 6 % 02/03/20 01:14 Eosinophils % 4 % 02/03/20 01:14 Basophils % 0 % 02/03/20 01:14 Neutrophils # 5.8 k/uL (1.3-7.7) 02/03/20 01:14 Lymphocytes # 0.8 k/uL (1.0-4.8) L 02/03/20 01:14 Monocytes # 0.5 k/uL (0-1.0) 02/03/20 01:14 Eosinophils # 0.3 k/uL (0-0.7) 02/03/20 01:14 Basophils # 0.0 k/uL (0-0.2) 02/03/20 01:14 Sodium 136 mmol/L (137-145) L 02/03/20 01:14 Potassium 3.9 mmol/L (3.5-5.1) 02/03/20 01:14 Chloride 105 mmol/L (98-107) 02/03/20 01:14 Carbon Dioxide 24 mmol/L (22-30) 02/03/20 01:14 Anion Gap 7 mmol/L 02/03/20 01:14 BUN 8 mg/dL (9-20) L 02/03/20 01:14 Creatinine 0.81 mg/dL (0.66-1.25) 02/03/20 01:14 Est GFR (CKD-EPI)AfAm >90 (>60 ml/min/1.73 sqM) 02/03/20 01:14 Est GFR (CKD-EPI)NonAf >90 (>60 ml/min/1.73 sqM) 02/03/20 01:14 Glucose 110 mg/dL (74-99) H 02/03/20 01:14 Calcium 9.2 mg/dL (8.4-10.2) 02/03/20 01:14 Total Bilirubin 0.3 mg/dL (0.2-1.3) 02/03/20 01:14 AST 20 U/L (17-59) 02/03/20 01:14 ALT 18 U/L (4-49) 02/03/20 01:14 Alkaline Phosphatase 48 U/L (38-126) 02/03/20 01:14 Total Protein 7.3 g/dL (6.3-8.2) 02/03/20 01:14 Albumin 4.3 g/dL (3.5-5.0) 02/03/20 01:14 Triglycerides 56 mg/dL (<150) 02/03/20 01:14 Cholesterol 133 mg/dL (<200) 02/03/20 01:14 LDL Cholesterol, Calc 87 mg/dL (0-99) 02/03/20 01:14 HDL Cholesterol 35 mg/dL (40-60) L 02/03/20 01:14 TSH 3.830 mIU/L (0.465-4.680) 02/03/20 01:14 Urine Color Light Yellow 02/03/20 01:45 Urine Appearance Clear (Clear) 02/03/20 01:45 Urine pH 7.0 (5.0-8.0) 02/03/20 01:45 Ur Specific [place] 1.005 (1.001-1.035) 02/03/20 01:45 Urine Protein Negative (Negative) 02/03/20 01:45 Urine Glucose (UA) Negative (Negative) 02/03/20 01:45 Urine Ketones Negative (Negative) 02/03/20 01:45 Urine Blood Negative (Negative) 02/03/20 01:45 Urine Nitrite Negative (Negative) 02/03/20 01:45 Urine Bilirubin Negative (Negative) 02/03/20 01:45 Urine Urobilinogen 2.0 mg/dL (<2.0) 02/03/20 01:45 Ur Leukocyte Esterase Negative (Negative) 02/03/20 01:45 Urine Opiates Screen Not Detected (NotDetected) 02/03/20 01:45 Ur Oxycodone Screen Not Detected (NotDetected) 02/03/20 01:45 Urine Methadone Screen Not Detected (NotDetected) 02/03/20 01:45 Ur Propoxyphene Screen Not Detected (NotDetected) 02/03/20 01:45 Ur Barbiturates Screen Not Detected (NotDetected) 02/03/20 01:45 U Tricyclic Antidepress Detected (NotDetected) H 02/03/20 01:45 Ur Phencyclidine Scrn Not Detected (NotDetected) 02/03/20 01:45 Ur Amphetamines Screen Not Detected (NotDetected) 02/03/20 01:45 U Methamphetamines Scrn Not Detected (NotDetected) 02/03/20 01:45 U Benzodiazepines Scrn Not Detected (NotDetected) 02/03/20 01:45 Urine Cocaine Screen Detected (NotDetected) H 02/03/20 01:45 U Marijuana (THC) Screen Detected (NotDetected) H 02/03/20 01:45 02/04/20 11:52 IDENTIFYING DATA: Patient is a 44-year-old male who is currently homeless living in a long-term is single as and is unemployed. HPI: Patient presented [facility] the [facility] with odd behavior and confusion as per ER report. Patient was petitioned by hospital security officer claiming the patient was "acting bizarre" and "attempted to put a socket for phone physician anesthesiologist in his mouth". Petition also claims that patient believed that he was 11 years old and was walking around with a pillowcase on his head. Patient was admitted to the mental health unit and seen by racebook writer today and appeared to be wandering the hallways looking confused and bizarre. Patient was initially appropriate however as the interview progressed patient became more confused and guarded/evasive. He states that his mood is "fine" however did state that he has on and off suicidal thoughts however none at the moment. He states that he has been taking his medications and was only able to list off Remeron and Trilafon. He endorsed paranoia and several loosely formed delusions. He claims that he can "read people's minds" and states that he has poor sleep. He states that he does not remember the events that occurred prior to him coming in the hospital. He states that he hears voices telling him to "break stuff". Patient denies any suicidal or homicidal ideations intent or plan. At this time patient denies visual hallucinations. Patient denies any flight of ideas racing thoughts and increased in goal directed behavior. Patient admits to using marijuana daily and cigarettes daily. PAST PSYCHIATRIC HISTORY: Patient states that he has a history of schizophrenia. Patient claims that he is on Trilafon, Seroquel, Artane. His last admission to the mental health unit was in 01/2016. Patient states that he follows up with Dr. Correa at [facility]. He states that he has 1 previous suicide attempt however does not want to speak about it. PMH: Chronic back pain and fibromyalgia. ALLERGIES: as per EMR CHEMICAL DEPENDENCY HISTORY: as per HPI FAMILY PSYCHIATRIC/SUBSTANCE USE HISTORY: He states that his brother has some form of mental illness. SOCIAL HISTORY: Patient was born and raised in [facility] and currently lives in a long-term and is homeless. He states that he is single and no kids and is unemployed. He claims that he is never been to [facility]. He states that he completed up to the 10th grade. He states that he used to work 20 years ago however did not state what he used to do.. MENTAL STATUS EXAM: General Appearance: Patient appears to be stated age is alert, difficult to direct at times and bizarre. Intrusive at times. Patient appears to have poor hygiene and grooming. Behavior: Patient is seated without any agitated behavior. Intrusive at times. Bizarre. Speech: Patient's speech is fluent and nonpressured. Mood/Affect: Patient reports their mood is "okay", affect is congruent and constricted. Suicidality/Homicidality: Patient denies having any homicidal ideation intent or plan. Denies any suicidal ideations intent or plan Perceptions: Patient denies any visual hallucinations and admits to auditory hallucinations "telling me to break stuff". Though content/process: Patient has several loosely formed delusions, endorses paranoia. Illogical at times. Memory and concentration: AOX3, grossly intact for the purposes of this session. Can spell "WORLD" backwards Judgment and insight: poor/impulsive. STRENGTHS/WEAKNESSES: strength is that patient is resilient. Weakness is that patient has poor judgment and is impulsive INTELLECT: Below average IMPRESSIONS: Schizophrenia Cannabis use disorder Nicotine dependence PLAN: -Patient is admitted under involuntary status to MHU for stabilization of psychi atric symptoms and safety. Patient signed medication consent and is placed in patient's chart. A second certification was completed and along with petition will be filed for court. -Medications : Will start patient on Trilafon 8 mg twice a day for psychosis, Seroquel 250 mg twice a day for psychosis/mood stabilization. Remeron 30 mg daily at bedtime for insomnia/sleep. Continue with Artane 5 mg twice a day for EPS prophylaxis. -Ativan and Geodon PRN for agitation/aggression -Patient was informed of the risks, benefits and side effects of the medication and patient verbally consented to taking the medications. Patient signed med consent form and was placed in chart. -Internal Medicine consult to perform medical evaluation and physical. -NRT - nicotine patch -SW on board for discharge planning. Encourage patient to participate in groups to work on coping skills. Patient will likely be discharged back to long-term once he is clinically stabilized. We'll await deferral and full court hearing. 02/04/20 11:59
[2020-02-04] MEDS: LORazepam 1 MG TAB PO PRN ×2 (13:17→20:19)
[2020-02-04 17:04] LABS: Hemoglobin A1C 5.2 % (4.0-6.0)
[2020-02-04] MEDS: MIRTAZAPINE 15 MG TAB PO SCH (20:17)
[2020-02-05] MEDS: NICOTINE 14MG/24HR PATCH TRANSDERM SCH (08:44)
[2020-02-05] MEDS: PERPHENAZINE 4 MG TAB PO SCH ×2 (08:46→21:30)
[2020-02-05] MEDS: PROPRANOLOL 40 MG TAB PO SCH (08:46)
[2020-02-05] MEDS: QUEtiapine 100 MG TAB PO SCH ×2 (08:47→21:30)
[2020-02-05] MEDS: TRIHEXYPHENIDYL 2 MG TAB PO SCH ×2 (08:47→21:30)
--- NOTE | 2020-02-05 09:47 | P.PN ---
Progress Note - Text Progress Note Date: 02/05/20 Interval History: Patient was seen and was directable and agreeable to speak with commercial insurance underwriter in the office. Patient appeared to be upset this morning and stated that he did not sleep well last night because his roommate "wanted to pick a fight with me" and claimed that he didn't want to share a room with him and he stated that he yelled at his roommate. He states that he is also upset because he believes that his phone was lost in the ambulance or in the hospital and claims that "I'm not eating showering or taking my medications until I get my phone". His insight and judgment remain poor. He also did appear to be irritable at times during the interview. Immigration Lawyer attempted to explain his involuntary status and the court process and also that we will try to look for his phone and patient became more upset and stormed out of the room before ending the interview. Mental Status Exam: General Appearance: Patient appears to be stated age is alert, visibly upset. Intrusive at times. Patient appears to have poor hygiene and grooming. Behavior: Patient is seated without any agitated behavior. Intrusive at times, argumentative. Speech: Patient's speech is fluent and nonpressured. Mood/Affect: Patient reports their mood is "ok", affect is congruent Suicidality/Homicidality: Patient denies having any homicidal ideation intent or plan. Denies any suicidal ideations intent or plan Perceptions: Unable to assess. Though content/process: Patient was preoccupied with his phone being lost, goal directed however concrete. Memory and concentration: AOX3, grossly intact for the purposes of this session Judgment and insight: poor/impulsive. Assessment Schizophrenia Cannabis use disorder Nicotine dependence Plan: -Patient continues to meet criteria for inpatient psychiatric admission for symptom stabilization and safety. Patient signed medication consent and is placed in patient's chart. A second certification was completed and along with petition will be filed for court, currently awaiting deferral and court date. -Medications: Continue with Trilafon 8 mg twice a day for psychosis, Seroquel 250 mg twice a day for psychosis/mood stabilization. Remeron 30 mg nightly for insomnia/sleep, Artane 5 mg twice a day for EPS prophylaxis. -When necessary Ativan and Geodon for agitation/aggression. -NRT - nicotine patch -SW on board for discharge planning. Encouraged the patient to participate in milieu. Patient is homeless and will likely be going back to the group home once h e is clinically stable.
[2020-02-05] MEDS: LORazepam 1 MG TAB PO PRN (16:24)
[2020-02-05] MEDS: ZIPRASIDONE 20 MG VIAL IM PRN (20:31)
[2020-02-05] MEDS ORDERED: OLANZapine 10 MG VIAL IM STA (20:52)
[2020-02-05] MEDS ORDERED: HALOPERIDOL LACTATE 5 MG/ML 1 ML VIAL IM STA (20:55)
[2020-02-05] MEDS ORDERED: diphenhydrAMINE 50 MG/ML 1 ML VIAL IM STA (20:55)
[2020-02-05] MEDS ORDERED: LORazepam 2 MG/ML INJ IM STA (20:55)
[2020-02-05] MEDS: MIRTAZAPINE 15 MG TAB PO SCH (21:31)
--- NOTE | 2020-02-05 21:46 | P.MHFACE ---
Face to Face Restrain/Seclus - Evaluation Patient's Immediate Situation: Endangers self safety, Endangers staff safety Patient's Immediate Situation - Comment: Notified at 8:57 pm that patient placed in restraints at 8:42 pm. Patient seen at the bedside on the MHU at 9:03. Notified by the staff the patient was making verbal threats towards the staff and was slamming furniture and doors. The patient was evaluated while in 4 point restraints. Patient's Reaction to the Intervention: Appropriate, Hostile Patient's Reaction to the Intervention - Comment: Patient threatening staff while in restraints. Patient's Medical & Behavioral Condition: Awake, Alert, Agitated Need to Continue or Terminate Restraint or Seclusion: Continue Need to Continue or Terminate Restraint/Seclusion - Comment: Continue with restraints for now with plan to discontinue as soon as possible. Patient's radial and dorsalis pedis pulses palpable ok.
[2020-02-06] MEDS: NICOTINE 14MG/24HR PATCH TRANSDERM SCH ×3 (08:26→20:03)
[2020-02-06] MEDS: TRIHEXYPHENIDYL 2 MG TAB PO SCH ×2 (08:26→19:57)
[2020-02-06] MEDS: QUEtiapine 100 MG TAB PO SCH ×4 (08:27→19:56)
[2020-02-06] MEDS: LORazepam 1 MG TAB PO PRN (08:30)
[2020-02-06] MEDS: PROPRANOLOL 40 MG TAB PO SCH (08:42)
[2020-02-06] MEDS: PERPHENAZINE 4 MG TAB PO SCH ×2 (08:42→20:25)
--- NOTE | 2020-02-06 11:47 | P.PN ---
Subjective Progress Note Date: 02/06/20 The patient was seen in the chart was reviewed. The patient was not able to answer questions appropriately. The case was discussed with the staff on the unit. He appears to be angry and upset. The patient speech is rambling and difficult to redirect. The patient complains of poor sleep at night. The patient has been refusing his daytime Seroquel. The patient is demanding Seroquel XR at a higher dose at night. The patient remained paranoid and delusional. The patient denies any auditory or visual hallucinations but appears to be preoccupied and responding to internal cues. The patient has been poorly compliant with the medications. He denies any active suicidal or homicidal ideations at this time. Objective - Vital Signs Vital signs: Vital Signs Temp 98.5 F 02/06/20 08:32 Pulse 108 H 02/06/20 08:32 Resp 20 02/06/20 08:32 BP 114/70 02/06/20 08:32 Pulse Ox 96 02/03/20 05:19 - Exam Mental Status Exam: General Appearance: Patient appears to be stated age is alert, visibly upset. Intrusive at times. Patient appears to have poor hygiene and grooming. Behavior: Patient is seated without any agitated behavior. Intrusive at times, argumentative. Speech: Patient's speech is fluent and nonpressured. Mood/Affect: Patient reports their mood is "ok", affect is congruent Suicidality/Homicidality: Patient denies having any homicidal ideation intent or plan. Denies any suicidal ideations intent or plan Perceptions: Unable to assess. Though content/process: Patient was preoccupied with his phone being lost, goal directed however concrete. Memory and concentration: AOX3, grossly intact for the purposes of this session Judgment and insight: poor/impulsive. - Labs CBC & Chem 7: 02/03/20 01:14 02/03/20 01:14 Assessment and Plan Assessment: Assessment Schizophrenia Cannabis use disorder Nicotine dependence Plan: Plan: -Patient continues to meet criteria for inpatient psychiatric admission for symptom stabilization and safety. Patient signed medication consent and is placed in patient's chart. A second certification was completed and along with petition will be filed for court, currently awaiting deferral and court date. -Medications: Continue with Trilafon 8 mg twice a day for psychosis, Change Seroquel 500 mg at bedtime and 100 mg by mouth twice a day for psychosis/mood stabilization. Continue Remeron 30 mg nightly for insomnia/sleep, Artane 5 mg twice a day for EPS prophylaxis. -When necessary Ativan and Geodon for agitation/aggression. -NRT - nicotine patch -SW on board for discharge planning. Encouraged the patient to participate in milieu. Patient is homeless and [facility].
[2020-02-06] MEDS: QUEtiapine 200 MG TAB PO SCH (19:56)
[2020-02-06] MEDS: MIRTAZAPINE 15 MG TAB PO SCH (19:57)
[2020-02-06] MEDS ORDERED: QUEtiapine 100 MG TAB PO SCH (21:00)
[2020-02-07] MEDS: NICOTINE 14MG/24HR PATCH TRANSDERM SCH (08:35)
[2020-02-07] MEDS: PERPHENAZINE 4 MG TAB PO SCH ×2 (08:36→19:48)
[2020-02-07] MEDS: PROPRANOLOL 40 MG TAB PO SCH (08:36)
[2020-02-07] MEDS: TRIHEXYPHENIDYL 2 MG TAB PO SCH ×2 (08:36→19:47)
[2020-02-07] MEDS: QUEtiapine 100 MG TAB PO SCH ×3 (08:36→19:49)
[2020-02-07] MEDS: LORazepam 1 MG TAB PO PRN ×2 (08:37→15:51)
--- NOTE | 2020-02-07 17:20 | P.PN ---
Progress Note - Text Progress Note Date: 02/07/20 Clinical Problems: Schizophrenia, cannabis use disorder, tobacco use disorder. Interim history: I reviewed the medical record and interviewed the patient. He was concerned about housing and income. He talked about his difficulties with obtaining Social Security since he was released from intermediate (I reviewed the [facility] court docket. He has past charges of retail fraud and organize retail fraud). He denied feeling depressed or having thoughts of or suicide. He denied experiencing auditory, visual or olfactory hallucinations, ideas reference, thought she, thought broadcasting or thought control. Mental status exam: He presented as a casually groomed bolting male who was pleasant on approach. He made eye contact and attended the interview. He had a blunted facial expression. He had slight psychomotor retardation but no abnormal movements. His speech was slow with normal rate and rhythm. His affect was blunted but stable and appropriate. He denied suicidal ideation, wishes or homicidal ideation. He denied feeling hopeless, helpless or worthless. He did not express clear ideas reference, paranoid ideation or delusions. His thinking was concrete but his associations were logical and goal directed. He denied hallucinations did not appear to be responding to internal stimuli. Assessment: He is chronically mentally ill and appears much improved from admission. Plan: The inpatient treatment. Continue seeing precautions. Continue current psychotropic) medications-Remeron, Trilafon and Seroquel. Encouraged continued participation in therapeutic groups and activities. Evaluate clinical status response to treatment daily basis.
[2020-02-07] MEDS: QUEtiapine 200 MG TAB PO SCH (19:48)
[2020-02-07] MEDS: MIRTAZAPINE 15 MG TAB PO SCH (19:50)
[2020-02-08] MEDS: NICOTINE 14MG/24HR PATCH TRANSDERM SCH (08:29)
[2020-02-08] MEDS: TRIHEXYPHENIDYL 2 MG TAB PO SCH ×2 (08:30→20:44)
[2020-02-08] MEDS: QUEtiapine 100 MG TAB PO SCH ×3 (08:30→20:45)
[2020-02-08] MEDS: PROPRANOLOL 40 MG TAB PO SCH (08:30)
[2020-02-08] MEDS: PERPHENAZINE 4 MG TAB PO SCH ×2 (08:30→20:46)
[2020-02-08] MEDS: LORazepam 1 MG TAB PO PRN ×2 (08:33→15:39)
--- NOTE | 2020-02-08 11:25 | P.PN ---
Progress Note - Text Progress Note Date: 02/08/20 Clinical Problems: Schizophrenia, cannabis use disorder, tobacco use disorder. Interim history: I reviewed the medical record and interviewed the patient. He denied problems or concerns except discharge. He denied feeling depressed or having thoughts of or suicide. He denied experiencing auditory, visual or olfactory hallucinations. Mental status exam: He presented as a casually groomed bolting male who was pleasant on approach. He made eye contact and attended the interview. He had a blunted facial expression. He had slight psychomotor retardation but no abnormal movements. His speech was slow with normal rate and rhythm. His affect was blunted but stable and appropriate. He denied suicidal ideation, wishes or homicidal ideation. He denied feeling hopeless, helpless or worthless. He did not express clear ideas reference, paranoid ideation or delusions. His thinking was concrete but his associations were logical and goal directed. He denied hallucinations did not appear to be responding to internal stimuli. Assessment: He is chronically mentally ill and appears much improved from admission. Plan: The inpatient treatment. Continue seeing precautions. Continue current psychotropic - medications-Remeron, Trilafon and Seroquel. Encouraged continued participation in therapeutic groups and activities. Evaluate clinical status response to treatment daily basis.
[2020-02-08] MEDS: QUEtiapine 200 MG TAB PO SCH (20:44)
[2020-02-08] MEDS: MIRTAZAPINE 15 MG TAB PO SCH (20:44)
[2020-02-09] MEDS: PROPRANOLOL 40 MG TAB PO SCH (07:57)
[2020-02-09] MEDS: NICOTINE 14MG/24HR PATCH TRANSDERM SCH (07:57)
[2020-02-09] MEDS: TRIHEXYPHENIDYL 2 MG TAB PO SCH ×2 (07:57→20:08)
[2020-02-09] MEDS: PERPHENAZINE 4 MG TAB PO SCH ×2 (07:57→20:07)
[2020-02-09] MEDS: QUEtiapine 100 MG TAB PO SCH ×3 (07:57→20:09)
[2020-02-09] MEDS: LORazepam 1 MG TAB PO PRN ×2 (08:01→16:03)
--- NOTE | 2020-02-09 11:04 | P.PN ---
Progress Note - Text Progress Note Date: 02/09/20 Interval History: Patient was seen and was directable and agreeable to speak with marketing writer in the office. Patient appeared to be more cooperative with marketing writer today. He spoke about going to groups and also spoke about his parents and siblings today. He claims that he is still waiting to speak to the natural sciences manager over the phone about the deferral and claims that "I wanted to have nothing to do with court". He states that he is still agreeable to take his medications and claims that if he does not take his [facility] then "online and back here". He states that his mood has been gradually improving. He showed improvement in his impulse control and reality testing. He states that he slept well last night and has a fair appetite. He denies any auditory or visual hallucinations and denies any suicidal or homicidal ideations intent or plan. Mental Status Exam: General Appearance: Patient appears to be stated age is alert, less intrusive and more directable today. Patient appears to have improved hygiene and grooming. Behavior: Patient is seated without any agitated behavior. Less intrusive and more cooperative today. Speech: Patient's speech is fluent and nonpressured. Mood/Affect: Patient reports their mood is "ok", affect is congruent Suicidality/Homicidality: Patient denies having any homicidal ideation intent or plan. Denies any suicidal ideations intent or plan Perceptions: Denies any auditory or visual hallucinations. Though content/process: Patient is logical and goal oriented and concrete. Memory and concentration: AOX3, grossly intact for the purposes of this session Judgment and insight: poor, improving mildly. Assessment Schizophrenia Cannabis use disorder Nicotine dependence Plan: -Patient continues to meet criteria for inpatient psychiatric admission for symptom stabilization and safety. Patient signed medication consent and is placed in patient's chart. A second certification was completed and along with petition will be filed for court, currently awaiting deferral and court date. -Medications: Continue with Trilafon 8 mg twice a day for psychosis, Seroquel increased to 500 mg daily at bedtime +100 mg at 12 PM and 100 mg at 9 AM for mood stabilization/psychosis. Remeron 30 mg nightly for insomnia/sleep, Artane 5 mg twice a day for EPS prophylaxis. -When necessary Ativan and Geodon for agitation/aggression. -NRT - nicotine patch -SW on board for discharge planning. Encouraged the patient to participate in milieu. Patient is homeless and [facility] once he is clinically [facility]. Likely discharge tomorrow after deferral.
[2020-02-09] MEDS: QUEtiapine 200 MG TAB PO SCH (20:08)
[2020-02-09] MEDS: MIRTAZAPINE 15 MG TAB PO SCH (20:09)
[2020-02-10 07:21] VITALS: BP 110/61; PULSE 89; RESP 18; TEMP 98.7
[2020-02-10] MEDS: QUEtiapine 100 MG TAB PO SCH ×2 (08:30→12:07)
[2020-02-10] MEDS: PERPHENAZINE 4 MG TAB PO SCH (08:30)
[2020-02-10] MEDS: NICOTINE 14MG/24HR PATCH TRANSDERM SCH (08:30)
[2020-02-10] MEDS: TRIHEXYPHENIDYL 2 MG TAB PO SCH (08:30)
[2020-02-10] MEDS: PROPRANOLOL 40 MG TAB PO SCH (08:30)
--- NOTE | 2020-02-10 09:36 | P.DS ---
Providers Date of admission: 02/03/20 12:13 Expected date of discharge: 02/10/20 Attending physician: Nicola Lemon MD Consults: 02/03/20 13:04 Consult Physician Routine Consulting Provider: Rosio Arrieta Consult Reason/Comments: H & P and medical care, Review Saboxone use. Do you want consulting provider notified?: Yes Primary care physician: Stated None - Discharge Diagnosis(es) (1) Schizophrenia Current Visit: Yes Status: Acute Priority: High (2) Cannabis use disorder, mild, abuse Current Visit: Yes Status: Acute Priority: Medium (3) Nicotine dependence Current Visit: Yes Status: Acute Priority: Low (4) Cocaine abuse Current Visit: Yes Status: Acute Priority: Medium Hospital Course: Admission HPI: Patient is a 44-year-old male who is currently homeless living in a fpc is single as and is unemployed. Patient presented to the hospital from the [facility] with odd behavior and confusion as per ER report. 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 Petition also claims that patient believed that he was 11 years old and was walking around with a pillowcase on his head. Patient was admitted to the mental health unit and seen by brief writer today and appeared to be wandering the hallways looking confused and bizarre. Patient was initially appropriate however as the interview progressed patient became more confused and guarded/evasive. He states that his mood is "fine" however did state that he has on and off suicidal thoughts however none at the moment. He states that he has been taking his medications and was only able to list off Remeron and Trilafon. He endorsed paranoia and several loosely formed delusions. He claims that he can "read people's minds" and states that he has poor sleep. He states that he does not remember the events that occurred prior to him coming in the hospital. He states that he hears voices telling him to "break stuff". Patient denies any suicidal or homicidal ideations intent or plan. At this time patient denies visual hallucinations. Patient denies any flight of ideas racing thoughts and increased in goal directed behavior. Patient admits to using marijuana daily and cigarettes daily. Hospital course: Upon admission to the unit patient was initially bizarre and psychotic. Patient was initially resistant to treatment and petition and certifications were filed with court and patient ended up signing a deferral for treatment on 02/09/2020. Patient gradually came more cooperative, directable and agreeable to commence treatment. Patient got along well with other patients on the unit and followed unit protocol for the most part however patient did have an incident where he became severely agitated required when necessary medications and also restraints/occlusion.. Patient was compliant with the medications and denied any side effects throughout hospital course. Patient was started on back on his home medications of Trilafon 8 mg twice a day for psychosis, Seroquel was titrated up to a dose of 500 mg daily at bedtime +100 mg every morning +100 mg at 12 PM for psychosis/mood stabilization, patient was also restarted on Remeron 30 mg nightly for mood/sleep, and his home dose of Artane 5 mg twice a day for EPS prophylaxis. Patient spoke of his stressors and engaged in therapy both group and individual. Patient was also seen by medical team for history and physical exam. Throughout the course of the hospitalization patient gradually improved with regards to mood, psychosis and agitation, sleep and became future oriented with improved insight and judgment. On the day of discharge patient denied any suicidal or homicidal ideations intent or plan denied any auditory or visual hallucinations. Patient endorsed wanting to live for his future and his family. The patient denied any access to guns or weapons. Patient denied any paranoia and did not endorse any delusions. Patient does have a significant history of substance abuse and was counseled on abstaining from all substances including alcohol and marijuana. Patient was offered however declined inpatient substance-abuse rehab and claims that he will be following up with [facility] for outpatient substance use treatment. Patient was also counseled on the medications and need for regular compliance and was encouraged to follow-up with their outpatient appointment for mental health and also for primary care. Mental status exam: General Appearance: Patient appears to be stated age is alert, directable, and attempts to be cooperative. Patient is in no acute distress and has fair hygiene and grooming Behavior: Patient is calmly seated without any agitated behavior. Attempted to be cooperative. Speech: Patient's speech is fluent and nonpressured. Mood/Affect: Patient reports their mood is "good", affect is congruent and euthymic. Suicidality/Homicidality: Patient denies having any suicidal or homicidal ideation intent or plan. Perceptions: Patient denies any auditory or visual hallucinations. Though content/process: There is no evidence of any delusional thought content and thought process is linear and goal-directed. more future oriented. [place]. Memory and concentration: AOX3, grossly intact for the purposes of this session. Can spell "WORLD" backwards correctly. Judgment and insight: Limited however has Improved with guarded prognosis Impression: Schizophrenia Cannabis use disorder Cocaine use disorder Nicotine dependence Plan: -Continue with discharge today as patient has improved and stabilized psychiatrically and is not currently an imminent threat to himself and/or others. -Continue medications: Continue with Trilafon 8 mg twice a day for psychosis, Seroquel 500 mg nightly +100 mg every morning +100 mg at 12 PM for psychosis/mood stabilization. Continue Artane 5 mg twice a day for EPS prophylaxis, Remeron 30 mg nightly for mood/sleep. Patient apparently stated that he was not able to tolerate only being on 1 antipsychotic and required 2 antipsychotics as he was taking as his home dose and can be looked at in the future to potentially have patient weaned off of 1 antipsychotic by his outpatient psychiatrist. -Patient was counseled on the need for medication compliance and appropriate follow-up at mental health and also primary care for medical issues. Patient verbalized understanding and agreed. -Social work to arrange for patient to go back to the [facility]pc. Social work also to arrange for patients follow up appointments with [facility] for psychiatric care along with follow up with primary care provider. -Patient counseled on abstaining from recreational drugs and marijuana and alcohol. Was informed/educated on the adverse effects on their physical and mental health. Patient verbally agreed and understood. Patient was offered substance abuse treatment however declined at this time and wanted to commence outpatient [facility] substance use treatment. -Patient was instructed to return to the hospital or seek immediate medical care if their psychiatric or medical symptoms do worsen or reoccur. Allergies Allergy/AdvReac Type Severity Reaction Status Date / Time pregabalin [From Lyrica] Allergy Swelling Verified 02/03/20 14:49 Laboratory Results WBC 7.6 k/uL (3.8-10.6) 02/03/20 01:14 RBC 4.95 m/uL (4.30-5.90) 02/03/20 01:14 Hgb 14.7 gm/dL (13.0-17.5) 02/03/20 01:14 Hct 45.1 % (39.0-53.0) 02/03/20 01:14 MCV 91.0 fL (80.0-100.0) 02/03/20 01:14 MCH 29.6 pg (25.0-35.0) 02/03/20 01:14 MCHC 32.5 g/dL (31.0-37.0) 02/03/20 01:14 RDW 12.8 % (11.5-15.5) 02/03/20 01:14 Plt Count 162 k/uL (150-450) 02/03/20 01:14 Neutrophils % 77 % 02/03/20 01:14 Lymphocytes % 11 % 02/03/20 01:14 Monocytes % 6 % 02/03/20 01:14 Eosinophils % 4 % 02/03/20 01:14 Basophils % 0 % 02/03/20 01:14 Neutrophils # 5.8 k/uL (1.3-7.7) 02/03/20 01:14 Lymphocytes # 0.8 k/uL (1.0-4.8) L 02/03/20 01:14 Monocytes # 0.5 k/uL (0-1.0) 02/03/20 01:14 Eosinophils # 0.3 k/uL (0-0.7) 02/03/20 01:14 Basophils # 0.0 k/uL (0-0.2) 02/03/20 01:14 Sodium 136 mmol/L (137-145) L 02/03/20 01:14 Potassium 3.9 mmol/L (3.5-5.1) 02/03/20 01:14 Chloride 105 mmol/L (98-107) 02/03/20 01:14 Carbon Dioxide 24 mmol/L (22-30) 02/03/20 01:14 Anion Gap 7 mmol/L 02/03/20 01:14 BUN 8 mg/dL (9-20) L 02/03/20 01:14 Creatinine 0.81 mg/dL (0.66-1.25) 02/03/20 01:14 Est GFR (CKD-EPI)AfAm >90 (>60 ml/min/1.73 sqM) 02/03/20 01:14 Est GFR (CKD-EPI)NonAf >90 (>60 ml/min/1.73 sqM) 02/03/20 01:14 Glucose 110 mg/dL (74-99) H 02/03/20 01:[address] Glu mg/dL 103 02/03/20 01:14 Hemoglobin A1c 5.2 % (4.0-6.0) 02/03/20 01:14 Calcium 9.2 mg/dL (8.4-10.2) 02/03/20 01:14 Total Bilirubin 0.3 mg/dL (0.2-1.3) 02/03/20 01:14 AST 20 U/L (17-59) 02/03/20 01:14 ALT 18 U/L (4-49) 02/03/20 01:14 Alkaline Phosphatase 48 U/L (38-126) 02/03/20 01:14 Total Protein 7.3 g/dL (6.3-8.2) 02/03/20 01:14 Albumin 4.3 g/dL (3.5-5.0) 02/03/20 01:14 Triglycerides 56 mg/dL (<150) 02/03/20 01:14 Cholesterol 133 mg/dL (<200) 02/03/20 01:14 LDL Cholesterol, Calc 87 mg/dL (0-99) 02/03/20 01:14 HDL Cholesterol 35 mg/dL (40-60) L 02/03/20 01:14 TSH 3.830 mIU/L (0.465-4.680) 02/03/20 01:14 Urine Color Light Yellow 02/03/20 01:45 Urine Appearance Clear (Clear) 02/03/20 01:45 Urine pH 7.0 (5.0-8.0) 02/03/20 01:45 Ur Specific [place] 1.005 (1.001-1.035) 02/03/20 01:45 Urine Protein Negative (Negative) 02/03/20 01:45 Urine Glucose (UA) Negative (Negative) 02/03/20 01:45 Urine Ketones Negative (Negative) 02/03/20 01:45 Urine Blood Negative (Negative) 02/03/20 01:45 Urine Nitrite Negative (Negative) 02/03/20 01:45 Urine Bilirubin Negative (Negative) 02/03/20 01:45 Urine Urobilinogen 2.0 mg/dL (<2.0) 02/03/20 01:45 Ur Leukocyte Esterase Negative (Negative) 02/03/20 01:45 Urine Opiates Screen Not Detected (NotDetected) 02/03/20 01:45 Ur Oxycodone Screen Not Detected (NotDetected) 02/03/20 01:45 Urine Methadone Screen Not Detected (NotDetected) 02/03/20 01:45 Ur Propoxyphene Screen Not Detected (NotDetected) 02/03/20 01:45 Ur Barbiturates Screen Not Detected (NotDetected) 02/03/20 01:45 U Tricyclic Antidepress Detected (NotDetected) H 02/03/20 01:45 Ur Phencyclidine Scrn Not Detected (NotDetected) 02/03/20 01:45 Ur Amphetamines Screen Not Detected (NotDetected) 02/03/20 01:45 U Methamphetamines Scrn Not Detected (NotDetected) 02/03/20 01:45 U Benzodiazepines Scrn Not Detected (NotDetected) 02/03/20 01:45 Urine Cocaine Screen Detected (NotDetected) H 02/03/20 01:45 U Marijuana (THC) Screen Detected (NotDetected) H 02/03/20 01:45 Vital Signs Temp 98.7 F 02/10/20 07:20 Pulse 89 02/10/20 07:20 Resp 18 02/10/20 07:20 BP 110/61 02/10/20 07:20 Pulse Ox 97 02/06/20 15:50 Patient Condition at Discharge: Stable Plan - Discharge Summary New Discharge Prescriptions: New Nicotine 14Mg/24Hr Patch [Habitrol] 1 patch TRANSDERM DAILY 14 Days patch Propranolol [Inderal] 40 mg PO DAILY 30 Days tab QUEtiapine [SEROquel] 100 mg PO DAILY 30 Days tab QUEtiapine [SEROquel] 500 mg PO HS 30 Days tab QUEtiapine [SEROquel] 100 mg PO DAILY@1200 30 Days tab Perphenazine [Trilafon] 8 mg PO BID 30 Days tab Acetaminophen Tab [Tylenol] 650 mg PO Q4HR PRN tab PRN Reason: Pain/Discomfort Continue Mirtazapine 30 mg PO HS 30 Days #30 tablet Trihexyphenidyl HCl 5 mg PO BID 30 Days tab Discontinued QUEtiapine XR [SEROquel XR] 200 mg PO HS QUEtiapine FUMARATE [Seroquel Xr] 300 mg PO HS Propranolol [Inderal] 40 mg PO DAILY Perphenazine [Trilafon] 8 mg PO BID Buprenorphine HCl/Naloxone HCl [Suboxone 8 mg-2 mg Sl Film] 1 film SUBLINGUAL DAILY Buprenorphine HCl/Naloxone HCl [Suboxone 12 mg-3 mg Sl Film] 1 film SUBLINGUAL DAILY Discharge Medication List Acetaminophen Tab [Tylenol] 650 mg PO Q4HR PRN tab 02/10/20 [Rx] Mirtazapine 30 mg PO HS 30 Days #30 tablet 02/10/20 [Rx] Nicotine 14Mg/24Hr Patch [Habitrol] 1 patch TRANSDERM DAILY 14 Days patch 02/10/20 [Rx] Perphenazine [Trilafon] 8 mg PO BID 30 Days tab 02/10/20 [Rx] Propranolol [Inderal] 40 mg PO DAILY 30 Days tab 02/10/20 [Rx] QUEtiapine [SEROquel] 100 mg PO DAILY 30 Days tab 02/10/20 [Rx] QUEtiapine [SEROquel] 100 mg PO DAILY@1200 30 Days tab 02/10/20 [Rx] QUEtiapine [SEROquel] 500 mg PO HS 30 Days tab 02/10/20 [Rx] Trihexyphenidyl HCl 5 mg PO BID 30 Days tab 02/10/20 [Rx] Follow up Appointment(s)/Referral(s): [facility] [Outside] - 02/16/20 11:00 am ([place] on SundayFebruary 15 at 11am) [facility] [NON-STAFF] - 1 Week Patient Instructions/Handouts: How to Stop Smoking (DC), Mood Disorders (DC), Psychotic Disorder (DC) Activity/Diet/Wound Care/Special Instructions: Activity and diet as tolerated. Avoid the use of street drugs and alcohol. Take all medications as prescribed. When you are in need of refills on your medications please contact your medical provider and/or outpatient psychiatrist to have this done. Please go to scheduled outpatient appointment for aftercare treatment. If symptoms return or become worse, call the crisis line at and/or go to the nearest emergency room for evaluation. Discharge Disposition: HOME SELF-CARE
[2020-02-10] MEDS: LORazepam 1 MG TAB PO PRN (12:07)
== END 2020-02-10 12:39 | disposition home or self-care (01) | DRG 885 ==
LOC: EC 00:19 → 3MHU 12:13
PROVIDERS: ADMIT Psychiatry & Neurology Psychiatry; ATTEND Psychiatry & Neurology Psychiatry
DX: F20.9 Schizophrenia, unspecified (principal); R45.851 Suicidal ideations; Z59.0 Homelessness; F10.11 Alcohol abuse, in remission; F14.10 Cocaine abuse, uncomplicated; F12.10 Cannabis abuse, uncomplicated; T50.906A Underdosing of unspecified drugs, medicaments and biological substances, initial encounter; Z91.128 Patient's intentional underdosing of medication regimen for other reason; M79.7 Fibromyalgia; G89.29 Other chronic pain; M51.36 Other intervertebral disc degeneration, lumbar region; F17.210 Nicotine dependence, cigarettes, uncomplicated; Z78.1 Physical restraint status; Z79.899 Other long term (current) drug therapy; Z91.5 Personal history of self-harm; Z71.51 Drug abuse counseling and surveillance of drug abuser; Z56.0 Unemployment, unspecified; Z98.890 Other specified postprocedural states; Z88.8 Allergy status to other drugs, medicaments and biological substances; Z81.1 Family history of alcohol abuse and dependence; Z82.49 Family history of ischemic heart disease and other diseases of the circulatory system; Z82.69 Family history of other diseases of the musculoskeletal system and connective tissue; Z83.49 Family history of other endocrine, nutritional and metabolic diseases
CPT/HCPCS: 36415; 80053; 80061; 80306; 81003; 82075; 83036; 84443; 85025; 96361; 96372; 96374; 99285